=== PATIENT | female | born 1995 | race Caucasian/White ===

== ENCOUNTER 2018-10-08 22:00 | Emergency (ER) | payer BC, OTHER ==
[2018-10-08 22:35] LABS: Absolute Monocytes 0.9 K/uL (0.1-1.3); Absolute Neutrophil 9.2 K/uL (1.8-8.0); Basophils % 0.5 % (0-1.3); Eosinophils % 0.5 % (0-4.4); Hematocrit 42.4 % (36.0-45.0); Lymphocytes % 22.6 % (15.3-44.8); MPV 8.8 fL (7.6-11.3); Monocytes % 6.7 % (3.3-12.3); RBC Red Blood Cell Count 4.66 M/uL (3.86-4.86)
[2018-10-08 22:49] LABS: Potassium 3.9 mmol/L (3.5-5.1)
[2018-10-08 22:50] LABS: Urine Blood TRACE (NEG); Urine Glucose NEGATIVE (NEG); Urine Protein NEGATIVE (NEG); Urine Specific Gravity <1.005 (1.005-1.030); Urine pH 5.5 (5.0-7.0)
[2018-10-08] MEDS ORDERED: MORPHINE 4 MG/ML SYR ONE (22:57)
[2018-10-08] MEDS ORDERED: ONDANSETRON 4 MG/2 ML VIAL ONE (22:57)
[2018-10-09] MEDS ORDERED: MORPHINE 4 MG/ML SYR ONE (00:40)
[2018-10-09] MEDS ORDERED: MUPIROCIN 2% OINT 22GM TUBE TOP ONE (01:02)
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
[2018-10-09 02:08] VITALS: BP 125/69; TEMP 97.8; O2SAT 99
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
--- NOTE | 2018-10-09 09:17 | RAD REPORT ---
EXAM DESCRIPTION: RAD -Hand Left 3 View - 10/08/2018 10:28 pm CLINICAL HISTORY: Left hand pain status post injury FINDINGS: A small bony density adjacent to the trapezium likely is chronic. An acute avulsion fractu re can also result in this appearance and should be correlated clinically. Otherwise, no fracture or dislocation seen Soft tissue swelling involves the dorsal soft tissues of the hand
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
== END 2018-10-09 01:49 | disposition short-term general hospital (02) ==
LOC: ER 22:00
DX: S67.22XA Crushing injury of left hand, initial encounter (principal); S90.02XA Contusion of left ankle, initial encounter; X58.XXXA Exposure to other specified factors, initial encounter; Y93.89 Activity, other specified; Y92.9 Unspecified place or not applicable; Z88.2 Allergy status to sulfonamides; Z91.040 Latex allergy status; Z91.048 Other nonmedicinal substance allergy status
CPT/HCPCS: 36415; 70450; 71260; 72125; 74177; 80048; 81003; 84703; 85025; 86850; 86900; 86901; 96374; 96375; 99285; J2405; Q9967

== ENCOUNTER 2019-03-16 13:46 | Emergency (ER) | payer BC ==
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
--- OUTSIDE RECORDS SUMMARY | 2019-03-16 13:53 | XMS REPORT ---
:1995 Author Organization [facility] Address [address] [place] [address] Care Team Providers Name Role Phone Unavailable Unavailable Unavailable Problems This patient has no known problems. Allergies, Adverse Reactions, Alerts This patient has no known allergies or adverse reactions. Medications This patient has no known medications. Encounters Start End Encounter Admission Attending Care Care Encounter Date/Time Date/Time Type Type Clinicians Facility Department ID 2018-10-09 2018-10-09 Emergency [facility] [id number] 01:37:00 01:37:00
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
[2019-03-16 14:38] LABS: Specific Gravity 1.025 (1.005-1.030)
[2019-03-16 14:48] LABS: Urine Blood NEGATIVE (NEG); Urine Glucose NEGATIVE (NEG); Urine Protein NEGATIVE (NEG)
[2019-03-16] MEDS ORDERED: METOCLOPRAMIDE 10 MG/2mL INJ ONE (14:48)
[2019-03-16] MEDS ORDERED: DIPHENHYDRAMINE 50 MG/ML VIAL ONE (14:48)
[2019-03-16] MEDS ORDERED: KETOROLAC 30 MG/ML INJ ONE (14:48)
--- NOTE | 2019-03-16 14:49 | EKG ---
Test Date: 2019-03-16 Test Time: 14:08:04 Roofer Assistant: PHIL MEASUREMENT RESULTS: Intervals: Rate: 91 WV: 166 QRSD: 92 QT: 348 QTc: 428 Arco: P: 54 WV: 166 QRS: 56 T: 46 INTERPRETIVE STATEMENTS: Normal sinus rhythm Normal ECG Compared to ECG 03/21/2015 12:34:35 No significant changes Electronically Signed On 03-16-19 14:48:57 CDT by Leonard Delcid
--- NOTE | 2019-03-16 15:19 | RAD REPORT ---
EXAM DESCRIPTION: Larry Single View03/16/2019 2:39 pm CLINICAL HISTORY: Chest pain COMPARISON: 2014 FINDINGS: The lungs appear clear of acute infiltrate. The heart is normal size IMPRESSION: No acute abnormalities displayed
--- NOTE | 2019-03-16 15:28 | ER ---
Nurse's Notes [facility] Name: Evelyn Joyner Age: 24 yrs Sex: Female : 1995 Arrival Date: 03/16/2019 Time: 13:49 Bed 8 Private MD: Diagnosis: Chest pain, unspecified;Migraine Presentation: 03/16 13:55 Presenting complaint: Patient states: i have this headache for 2 days now and i started hj having this chest pain this morning, its like a heavy feeling, sometimes i feel like a sharp pain on my L shoulder; denies N/V; pain is 6/10;. Transition of care: patient was not received from another setting of care. Onset of symptoms was March 16, 2019. Risk Assessment: Do you want to hurt yourself or someone else? Patient reports no desire to harm self or others. Initial Sepsis Screen: Does the patient meet any 2 criteria? No. Patient's initial sepsis screen is negative. Does the patient have a suspected source of infection? No. Patient's initial sepsis screen is negative. Care prior to arrival: None. 13:55 Method Of Arrival: Ambulatory 13:55 Acuity: DARLIN 3 Triage Assessment: 14:30 Headache History: The patient has had previous headaches and this one is similar to sv previous episodes, and this one is less severe than previous episodes. 14:30 Pain: Also complains of no other associated symptoms. 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 - Social history:: Smoking status: Patient/guardian denies using tobacco. - Ebola Screening: : No symptoms or risks identified at this time. Screenin:05 Abuse screen: Denies threats or abuse. Denies injuries from another. Nutritional sv screening: No deficits noted. Tuberculosis screening: No symptoms or risk factors identified. Fall Risk None identified. Assessment: 14:30 General: Appears in no apparent distress. uncomfortable, well groomed, well developed, sv Behavior is calm, cooperative, appropriate for age. Pain: Complains of pain in face and mid-sternal area Pain currently is 6 out of 10 on a pain scale. Quality of pain is described as tender, Pain began migraine started 2 days ago and CP started today Alleviated by nothing. Aggravated by touch. Neuro: Level of Consciousness is awake, alert, obeys commands, Oriented to person, place, time, situation, Moves all extremities. Full function Gait is steady, Reports headache frontal area. Cardiovascular: Patient's skin is warm and dry. Respiratory: Airway is patent Respiratory effort is even, unlabored, Respiratory pattern is regular, symmetrical. Derm: Skin is pink, warm \T\ dry. Musculoskeletal: Range of motion: intact in all extremities. 15:51 Reassessment: Patient appears in no apparent distress at this time. Patient and/or sv family updated on plan of care and expected duration. Pain level reassessed. Patient is alert, oriented x 3, equal unlabored respirations, skin warm/dry/pink. Patient denies pain at this time. Patient states feeling better. Patient states symptoms have improved. Vital Signs: 13:57 BP 119 / 61; Pulse 87; Resp 18; Temp 98.7(TE); Pulse Ox 99% on R/A; Weight 104.33 kg; hj Height 5 ft. 9 in. (175.26 cm); Pain 6/10; 15:14 BP 125 / 74; Pulse 90; Resp 16; Pulse Ox 100% ; Pain 6/10; sv 15:50 BP 126 / 70; Pulse 88; Resp 16; Pulse Ox 99% ; sv 15:50 Pain 0/10; sv 13:57 Body Mass Index 33.97 (104.33 kg, 175.26 cm) ED Course: 13:49 Patient arrived in ED. as 13:56 Triage completed. hj 13:57 Arm band placed on right wrist. hj 14:00 Zabrina Gallo, RN is Primary Nurse. sv 14:00 Patient has correct armband on for positive identification. Bed in low position. Call sv light in reach. Door closed. Head of bed elevated. 14:05 Evaristo Muñiz PA is PHCP. jr8 14:05 Damon Iqbal MD is Attending Physician. jr8 14:38 X-ray completed. Portable x-ray completed in exam room. Patient tolerated procedure mh1 well. 14:41 XRAY Chest (1 view) In Process Unspecified. EDMS 14:42 Test, Urine Sent. sv 15:10 Missed attempt(s): 22 gauge in right antecubital area. Bleeding controlled, band aid sv applied, catheter tip intact. 15:15 Inserted saline lock: 22 gauge in right antecubital area, using aseptic technique. sv Flushed left antecubital with 5 ml normal saline. 15:16 EKG done, by automotive specialty technician. reviewed by Evaristo NICOLE sm3 15:51 No provider procedures requiring assistance completed. IV discontinued, intact, sv bleeding controlled, No redness/swelling at site. Pressure dressing applied. Administered Medications: 15:18 Drug: TORadol - Ketorolac 15 mg Route: IVP; Site: left antecubital; sv 15:50 Follow up: Pain 0/10 Adult; Response: No adverse reaction; Marked relief of symptoms; sv Pain is decreased 15:20 Drug: Benadryl 25 mg Route: IVP; Site: left antecubital; sv 15:50 Follow up: Response: No adverse reaction; Marked relief of symptoms; Pain is decreased sv 15:21 Drug: Reglan 10 mg Route: IVP; Site: left antecubital; sv 15:50 Follow up: Response: No adverse reaction; Marked relief of symptoms; Pain is decreased sv Outcome: 15:27 Discharge ordered by MD. ochoa 15:51 Discharged to home ambulatory. sv 15:51 Condition: stable 15:51 Discharge instructions given to patient, Instructed on discharge instructions, follow up and referral plans. Demonstrated understanding of instructions, follow-up care. 15:51 Patient left the ED. sv Signatures: Dispatcher [employer] [facility] Zabrina Gallo RN RN sv Harvey, Martha 1 Maria De Jesus Hernandez Josh, PA PA jr8 Gage Hernandez RN RN hj Montes, Shakira 3 Corrections: (The following items were deleted from the chart) 13:59 13:57 Pulse 87bpm; Resp 18bpm; Pulse Ox 99% RA; Temp 98.7F Temporal; 104.33 kg; Height hj 5 ft. 9 in.; BMI: 33.9; Pain 6/10; hj
--- NOTE | 2019-03-16 15:28 | EDPHYS ---
Physician Documentation [facility] Name: Evelyn Joyner Age: 24 yrs Sex: Female : 1995 Arrival Date: 03/16/2019 Time: 13:49 Bed 8 Private MD: ED Physician Damon Iqbal HPI: 03/16 14:35 This 24 yrs old Female presents to ER via Ambulatory with complaints of jr8 Headache, Chest Pain. 14:35 Onset: The symptoms/episode began/occurred gradually, 2 day(s) ago. Associated signs jr8 and symptoms: The patient has no apparent associated signs or symptoms. Severity of symptoms: At its worst the pain was mild, in the emergency department the pain is unchanged. Headache History: The patient has had previous headaches and this one is similar to previous episodes. The symptoms are alleviated by nothing. the symptoms are aggravated by movement, noise. The patient has not recently seen a physician. Patient stated that she has history of migraines. Started to have one yesterday and took Excedrin but did not have relief. Stated that today started to have chest pain . 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 - Social history:: Smoking status: Patient/guardian denies using tobacco. - Ebola Screening: : No symptoms or risks identified at this time. ROS: 15:25 Eyes: Negative for injury, pain, redness, and discharge, ENT: Negative for injury, jr8 pain, and discharge, Neck: Negative for injury, pain, and swelling, Respiratory: Negative for shortness of breath, cough, wheezing, and pleuritic chest pain, Abdomen/GI: Negative for abdominal pain, nausea, vomiting, diarrhea, and constipation, Back: Negative for injury and pain, MS/Extremity: Negative for injury and deformity, Skin: Negative for injury, rash, and discoloration. 15:25 Cardiovascular: Positive for chest pain, Negative for edema, orthopnea, palpitations, paroxysmal nocturnal dyspnea. 15:25 Neuro: Positive for headache. Exam: 15:25 Eyes: Pupils equal round and reactive to light, extra-ocular motions intact. Lids and jr8 lashes normal. Conjunctiva and sclera are non-icteric and not injected. Cornea within normal limits. Periorbital areas with no swelling, redness, or edema. ENT: Nares patent. No nasal discharge, no septal abnormalities noted. Tympanic membranes are normal and external auditory canals are clear. Oropharynx with no redness, swelling, or masses, exudates, or evidence of obstruction, uvula midline. Mucous membranes moist. Neck: Trachea midline, no thyromegaly or masses palpated, and no cervical lymphadenopathy. Supple, full range of motion without nuchal rigidity, or vertebral point tenderness. No Meningismus. Cardiovascular: Regular rate and rhythm with a normal S1 and S2. No gallops, murmurs, or rubs. Normal PMI, no JVD. No pulse deficits. Respiratory: Lungs have equal breath sounds bilaterally, clear to auscultation and percussion. No rales, rhonchi or wheezes noted. No increased work of breathing, no retractions or nasal flaring. Abdomen/GI: Soft, non-tender, with normal bowel sounds. No distension or tympany. No guarding or rebound. No evidence of tenderness throughout. Back: No spinal tenderness. No costovertebral tenderness. Full range of motion. Skin: Warm, dry with normal turgor. Normal color with no rashes, no lesions, and no evidence of cellulitis. MS/ Extremity: Pulses equal, no cyanosis. Neurovascular intact. Full, normal range of motion. Neuro: Awake and alert, GCS 15, oriented to person, place, time, and situation. Cranial nerves II-XII grossly intact. Motor strength 5/5 in all extremities. Sensory grossly intact. Cerebellar exam normal. Normal gait. 15:25 Chest/axilla: Inspection: normal, Palpation: tenderness, that is mild, of the anterior aspect of right upper chest, anterior aspect of left upper chest and mid-sternal area, that totally reproduces the patient's complaints. Vital Signs: 13:57 BP 119 / 61; Pulse 87; Resp 18; Temp 98.7(TE); Pulse Ox 99% on R/A; Weight 104.33 kg; hj Height 5 ft. 9 in. (175.26 cm); Pain 6/10; 15:14 BP 125 / 74; Pulse 90; Resp 16; Pulse Ox 100% ; Pain 6/10; sv 15:50 BP 126 / 70; Pulse 88; Resp 16; Pulse Ox 99% ; sv 15:50 Pain 0/10; sv 13:57 Body Mass Index 33.97 (104.33 kg, 175.26 cm) MDM: 14:06 Patient medically screened. [facility] 15:25 Data reviewed: vital signs, nurses notes, EKG, radiologic studies, plain films. Data jr8 interpreted: Pulse oximetry: on room air is 100 %. Interpretation: normal. Counseling: I had a detailed discussion with the patient and/or guardian regarding: the historical points, exam findings, and any diagnostic results supporting the discharge/admit diagnosis, lab results, radiology results, the need for outpatient follow up, a family practitioner, to return to the emergency department if symptoms worsen or persist or if there are any questions or concerns that arise at home. 03/16 14:33 Order name: Urine Dipstick--Ancillary (enter results); Complete Time: 15:00 eb 03/16 14:37 Order name: Test, Urine; Complete Time: 15:00 EDMS 03/16 14:21 Order name: XRAY Chest (1 view); Complete Time: 15:25 jr8 03/16 13:59 Order name: EKG; Complete Time: 14:01 hj 03/16 14:22 Order name: Urine Dipstick-Ancillary (obtain specimen); Complete Time: 14:29 hb 03/16 14:22 Order name: Urine Test (obtain specimen); Complete Time: 14:42 hb 03/16 14:29 Order name: EKG - Nurse/Tech; Complete Time: 14:29 hb Administered Medications: 15:18 Drug: TORadol - Ketorolac 15 mg Route: IVP; Site: left antecubital; sv 15:50 Follow up: Pain 0/10 Adult; Response: No adverse reaction; Marked relief of symptoms; sv Pain is decreased 15:20 Drug: Benadryl 25 mg Route: IVP; Site: left antecubital; sv 15:50 Follow up: Response: No adverse reaction; Marked relief of symptoms; Pain is decreased sv 15:21 Drug: Reglan 10 mg Route: IVP; Site: left antecubital; sv 15:50 Follow up: Response: No adverse reaction; Marked relief of symptoms; Pain is decreased sv Disposition: 03/17 06:48 Co-signature as Attending Physician, Damon Iqbal MD I agree with the assessment and kdr plan of care. Disposition: 03/16/19 15:27 Discharged to Home. Impression: Chest pain, unspecified, Migraine. - Condition is Stable. - Discharge Instructions: Nonspecific Chest Pain, Migraine Headache. - Medication Reconciliation Form, Thank You Letter, Antibiotic Education, Prescription Opioid Use form. - Follow up: Private Physician; When: 5 - 6 days; Reason: Recheck today's complaints, Continuance of care, Re-evaluation by your physician. - Problem is new. - Symptoms have improved. Signatures: Dispatcher [employer] EDMS Zabrina Gallo RN RN Damon Stallworth MD MD kdr Roszak, Josh, PA PA jr8 Gage Hernandez RN RN Jumana Ellington RN RN Corrections: (The following items were deleted from the chart) 03/16 15:26 14:35 Patient stated that she has history of migraines . jr8 jr8 15:51 15:27 03/16/2019 15:27 Discharged to Home. Impression: Chest pain, unspecified; sv Migraine. Condition is Stable. Forms are Medication Reconciliation Form, Thank You Letter, Antibiotic Education, Prescription Opioid Use. Follow up: Private Physician; When: 5 - 6 days; Reason: Recheck today's complaints, Continuance of care, Re-evaluation by your physician. Problem is new. Symptoms have improved. jr8
[2019-03-16 16:04] VITALS: TEMP 98.7
[2019-03-16 16:07] VITALS: BP 126/70; O2SAT 99
== END 2019-03-16 15:51 | disposition home or self-care (01) ==
LOC: ER 13:46
DX: G43.909 Migraine, unspecified, not intractable, without status migrainosus (principal); R07.9 Chest pain, unspecified; Z88.2 Allergy status to sulfonamides; Z91.040 Latex allergy status
CPT/HCPCS: 71045; 81003; 81025; 93005; 96374; 96375; 99284; J2765